=== PATIENT | male | born 1940 | race Caucasian/White ===

== ENCOUNTER 2017-11-21 21:53 | Inpatient (IN) | payer MEDICARE, MEDICAID ==
[2017-11-21 22:41] LABS: % BASOPHILS 1.4 % (0.0-2.0); % EOSINOPHILS 5.1 % (0.0-5.0); % LYMPHOCYTES 20.8 % (20.0-50.0); % MONOCYTES 12.5 % (2.0-10.0); % NEUTROPHILS 60.2 % (40.0-80.0); BASOPHILE ABSOLUTE 0.1 Th/cumm (0-0.2); EOSINOPHILE ABSOLUTE 0.3 Th/cmm (0.1-0.4); HEMATOCRIT 40.7 % (41.0-60); HEMOGLOBIN 13.4 gm/dL (12-16); LYMPHOCYTE ABSOLUTE 1.1 Th/cmm (1.5-3.0); MEAN CELL VOLUME 92.2 fl (80-99); MEAN CORPUSCULAR HEMOGLOBIN 30.3 pg (27.0-31.0); MEAN CORPUSCULAR HGB CONC 32.9 pg (28.0-36.0); MEAN PLATELET VOLUME 8.1 fl; MONOCYTE ABSOLUTE 0.7 Th/cmm (0.3-1.0); NEUTROPHILE ABSOLUTE 3.3 Th/cmm (1.8-8.0); PLATELET COUNT 161 Th/cmm (150-400); RED BLOOD COUNT 4.41 Mil/cmm (3.80-5.80); RED CELL DISTRIBUTION WIDTH 15.7 % (11.5-20.0); WHITE BLOOD COUNT 5.5 Th/cmm (4.8-10.8)
[2017-11-21 23:03] LABS: ALB/GLOB RATIO 0.6 (1.0-1.8); ALBUMIN 2.8 gm/dL (4.2-5.5); ALKALINE PHOSPHATASE 120 U/L (34-104); ANION GAP 14.4 (7.0-16.0); BILIRUBIN,TOTAL 0.5 mg/dL (0.3-1.0); BUN - UREA NITROGEN 32 mg/dL (7-25); CALCIUM SERUM 8.4 mg/dL (8.6-10.3); CARBON DIOXIDE 27.2 mEq/L (21.0-31.0); CHLORIDE 97 mEq/L (98-107); CREATININE KINASE 33 U/L (30-223); GLUCOSE 157 mg/dL (70-105); POTASSIUM SERUM 3.6 mEq/L (3.5-5.1); SGOT 28 U/L (13-39); SGPT/ALT 15 U/L (7-52); SODIUM SERUM 135 mEq/L (136-145); TOTAL PROTEIN,SERUM 7.3 gm/dL (6.0-8.3)
[2017-11-21 23:05] LABS: TROP I 0.04 ng/mL (0.01-0.05)
[2017-11-21] MEDS ORDERED: Sodium Chloride 0.45% 1,000 ML IV SCH (23:30)
[2017-11-22 00:46] VITALS: BP 175/71
[2017-11-22 02:49] LABS: INR 1.06 (0.5-1.4)
[2017-11-22] MEDS: INSULIN ASPART SLIDING SCALE 100 UNITS/ML UNIT SUBQ SCH ×4 (06:32→21:26)
[2017-11-22 06:34] LABS: % BASOPHILS 0.8 % (0.0-2.0); % EOSINOPHILS 4.9 % (0.0-5.0); % LYMPHOCYTES 29.3 % (20.0-50.0); % MONOCYTES 13.7 % (2.0-10.0); % NEUTROPHILS 51.3 % (40.0-80.0); EOSINOPHILE ABSOLUTE 0.3 Th/cmm (0.1-0.4); HEMATOCRIT 36.8 % (41.0-60); HEMOGLOBIN 12.2 gm/dL (12-16); LYMPHOCYTE ABSOLUTE 1.6 Th/cmm (1.5-3.0); MEAN CELL VOLUME 92.2 fl (80-99); MEAN CORPUSCULAR HEMOGLOBIN 30.6 pg (27.0-31.0); MEAN CORPUSCULAR HGB CONC 33.2 pg (28.0-36.0); MEAN PLATELET VOLUME 8.3 fl; MONOCYTE ABSOLUTE 0.7 Th/cmm (0.3-1.0); NEUTROPHILE ABSOLUTE 2.8 Th/cmm (1.8-8.0); PLATELET COUNT 157 Th/cmm (150-400); RED BLOOD COUNT 3.99 Mil/cmm (3.80-5.80); RED CELL DISTRIBUTION WIDTH 15.6 % (11.5-20.0); WHITE BLOOD COUNT 5.4 Th/cmm (4.8-10.8)
[2017-11-22 06:35] LABS: BUN - UREA NITROGEN 37 mg/dL (7-25); CALCIUM SERUM 8.1 mg/dL (8.6-10.3); CARBON DIOXIDE 28.8 mEq/L (21.0-31.0); CHLORIDE 99 mEq/L (98-107); CREATININE - SERUM 3.6 mg/dL (0.7-1.3); GLUCOSE 118 mg/dL (70-105); POTASSIUM SERUM 3.8 mEq/L (3.5-5.1); SODIUM SERUM 137 mEq/L (136-145)
--- NOTE | 2017-11-22 08:44 | ED Physician Chart ---
ED Chief Complaint/HPI - Patient Information Date Seen:: 11/21/17 Time Seen:: 21:55 Chief Complaint:: Weakness History of Present Illness:: onset x one day of weakness and dizziness; no report of trauma, H/As, S/T, neck pain, C/P, SOB, Abd. Pain, A/N/V/D/C, fever, chills, or urinary s/s Allergies:: Allergies Allergy/AdvReac Type Severity Reaction Status Date / Time No Known Allergies Allergy Verified 11/21/17 22:01 Historian:: Patient, EMS Review:: Nurse's Note Reviewed, Old Chart Reviewed, EMS run form Reviewed ED Review of Systems - Review of Systems General/Constitutional: No fever, No chills, No weight loss, Weakness, No diaphoresis, No edema, No loss of appetite Skin: No skin lesions, No rash, No bruising Head: No headache, No light-headedness Eyes: No loss of vision, No pain, No diplopia ENT: No earache, No nasal drainage, No sore throat, No tinnitus Neck: No neck pain, No swelling, No thyromegaly, No stiffness, No mass noted Cardio Vascular: No chest pain, No palpitations, No PND, No orthopnea, No edema Pulmonary: No SOB, No cough, No sputum, No wheezing GI: No nausea, No vomiting, No diarrhea, No pain, No melena, No hematochezia, No constipation, No hematemesis G/U: No dysuria, No frequency, No hematuria Musculoskeletal: No bone or joint pain, No back pain, No muscle pain Endocrine: No polyuria, No polydipsia Psychiatric: No prior psych history, No depression, No anxiety, No suicidal ideation, No homicidal ideation, No auditory hallucination, No visual hallucination Hematopoietic: No bruising, No lymphadenopathy Allergic/Immuno: No urticaria, No angioedema Neurological: No syncope, No focal symptoms, Weakness, No paresthesia, No headache, No seizure, No dizziness, No confusion, Vertigo ED Past Medical History - Past Medical History Obtainable: Yes Past Medical History: HTN, Dyslipidemia, ESRD Family History: Diabetes Melitus, HTN Social History: Non Smoker, No Alcohol, No Drug Use, Single, Care Facility Surgical History: None Psychiatricy History: None Medication: Reviewed Family Medical History - Family Member Mother History Unknown: Yes ED Physical Exam - Physical Examination General/Constitutional: Awake, Well-developed, well-nourished, Alert, No distress, GCS 15, Non-toxic appearing, Ambulatory Head: Atraumatic Eyes: Lids, conjuctiva normal, PERRL, EOMI Skin: Nl inspection, No rash, No skin lesions, No ecchymosis, No lymphadenopathy Other Skin comments:: Poor turgor with dry MM ENMT: External ears, nose nl, TM canals nl, Nasal exam nl, Lips, teeth, gums nl , Oropharynx nl, Tonsils nl Neck: Nontender, Full ROM w/o pain, No JVD, No nuchal rigidity, No bruit, No mass, No stridor Respiratory: Nl effort/Exclusion, Clear to Auscultation, No Wheeze/Rhonchi/Rales Cardio Vascular: RRR, No murmur, gallop, rubs, NL S1 S2, Carotid/Femoral/Distal pulses equal bilaterally GI: No tenderness/rebounding/guarding, No organomegaly, No hernia, Normal BS's, Nondistended, No mass/bruits, No McBurney tenderness Other GI comments:: no pulsatile masses : No CVA tenderness Extremities: No tenderness or effusion, Full ROM, normal strength in all extremities, No edema, Normal digits & nails Neuro/Psych: Alert/oriented, DTR's symmetric, Normal sensory exam, Normal motor strength, Judgement/insight normal, Mood normal, Normal gait, No focal deficits Misc: Normal back, No paraspinal tenderness ED Labs/Radiology/EKG Results - Lab Results Results: Laboratory Tests 11/21/17 11/21/17 11/21/17 22:10 22:10 22:10 WBC 5.5 RBC 4.41 Hgb 13.4 Hct 40.7 L MCV 92.2 MCH 30.3 MCHC Differential 32.9 RDW 15.7 Plt Count 161 MPV 8.1 Neutrophils % 60.2 Lymphocytes % 20.8 Monocytes % 12.5 H Eosinophils % 5.1 H Basophils % 1.4 PT 11.0 INR 1.06 PTT (Actin FS) 31.0 Sodium 135 L Potassium 3.6 Chloride 97 L Carbon Dioxide 27.2 Anion Gap 14.4 BUN 32 H Creatinine 3.0 H Est GFR ( Amer) TNP Est GFR (Non-Af Amer) TNP BUN/Creatinine Ratio 10.7 Glucose 157 H Whole Bld Lactic Acid Calcium 8.4 L Total Bilirubin 0.5 AST 28 ALT 15 Alkaline Phosphatase 120 H Creatine Kinase 33 Troponin I Total Protein 7.3 Albumin 2.8 L Globulin 4.5 Albumin/Globulin Ratio 0.6 L 11/21/17 22:10 WBC RBC Hgb Hct MCV MCH MCHC Differential RDW Plt Count MPV Neutrophils % Lymphocytes % Monocytes % Eosinophils % Basophils % PT INR PTT (Actin FS) Sodium Potassium Chloride Carbon Dioxide Anion Gap BUN Creatinine Est GFR ( Amer) Est GFR (Non-Af Amer) BUN/Creatinine Ratio Glucose Whole Bld Lactic Acid 1.34 Calcium Total Bilirubin AST ALT Alkaline Phosphatase Creatine Kinase Troponin I 0.04 Total Protein Albumin Globulin Albumin/Globulin Ratio Comments:: Reviewed - Radiology Results Comments:: NAD - EKG Interpretations EKG Time:: 22:20 Rate & Rhythm: 60; NSR Comments:: non-specific st-t changes ED Septic Shock - . Is Septic Shock (SBP<90, OR Lactate>4 mmol\L) present?: No ED Reassessment (Disposition) - Reassessment Reassessment Condition:: Improved - Diagnosis Diagnosis:: Weakness; Vertigo; Dizziness; TIA; cardiac Arrythmias; Renal Failure; Hypionatremia; Dehydration - Aftercare/Follow up Instructions Aftercare/Follow-Up Instructions:: Counseled pt regarding lab results/diagnosis & need follow up, Counseled pt & family regarding lab results/diagnosis & need follow up - Patient Disposition Discharge/Transfer:: Acute Care w/in this hosp Accepting Physician:: Dr. Dupont Time Called:: [id number] Time Responded:: 23:15 Admitted to:: Telemetry Spoke to:: Dr. Dupont Admitting Medical Physician:: Dr. Dupont Condition at Disposition:: Stable, Improved ED Discharge Plan - Patient Disposition Admit/Discharge/Transfer: Acute Care w/in this hosp
--- NOTE | 2017-11-22 08:48 | Diagnostic Imaging Report ---
Portable chest x-ray HISTORY: Pain The heart is enlarged. Cardiac pacemaker lead wires project over the right atrium and right ventricle. No focal pulmonary processes. Right-sided vascular catheter tip is seen in the upper region of the right atrium near the junction with the superior vena cava. IMPRESSION: 1. Cardiomegaly with pacemaker placement 2. No focal pulmonary processes
[2017-11-22] MEDS ORDERED: Acetaminophen 500 MG TAB PO PRN (13:27)
[2017-11-22] MEDS ORDERED: Hydrocodone/APAP 10 mg/325 mg Tab PO PRN (13:27)
[2017-11-22] MEDS ORDERED: Fleet Enema 135 mL RC PRN (13:27)
[2017-11-22] MEDS ORDERED: Non-Formulary Item 1 EA (Epoetin Alfa [Procrit] 10,000 UNIT) SUBQ SCH (13:30)
[2017-11-22] MEDS ORDERED: Non-Formulary Item 1 EA (Isosorbide Dinitrate [Isosorbide Dinitrate] 30 MG) PO SCH (14:00)
[2017-11-22] MEDS ORDERED: Epoetin Alfa 20000 Units/mL Vial SUBQ SCH (14:30)
[2017-11-22] MEDS ORDERED: Non-Formulary Item 1 EA (Insulin Lispro [Humalog] 1 UNIT) SQ SCH (16:30)
[2017-11-22] MEDS ORDERED: MEGESTROL ACETATE PO SCH (16:30)
[2017-11-22] MEDS: Albuterol Nebulizer 2.5mg/3mL HHN SCH (18:48)
--- NOTE | 2017-11-22 20:28 | History & Physical ---
ADMIT DATE: 11/22/2017 HISTORY OF PRESENT ILLNESS: The patient has been having problems for the last several days, has been complaining of weakness, was complaining of dizziness and is complaining of no trauma, no neck pain, no abdominal pain, no fever, no chills. Came to the Emergency Room in [facility]. The patient is known to have a history of hypertension, hyperlipidemia, and ESRD. The patient had a workup done and the patient found to have increasing weakness, vertigo, dizziness, possible TIA, cardiac arrhythmia, increasing renal failure, hyponatremia, was admitted, and a Nephrology consult was sought. REVIEW OF SYSTEMS: Difficult to obtain. PAST MEDICAL HISTORY: Hypertension, hyperlipidemia, and ESRD. PHYSICAL EXAMINATION: GENERAL: Awake, alert, not in acute distress. VITAL SIGNS: Stable. SKIN: Turgor was decreased. The patient had dehydration. HEAD: Normal. ENT: Normal. NECK: Supple, nontender. LUNGS: Clear. CARDIOVASCULAR SYSTEM: S1, S2 heard. ABDOMEN: Soft. LABORATORY DATA: Hemoglobin was 13.4, hematocrit was 40, and white count was 5.5. His BUN and creatinine was high. EKG showed normal sinus rhythm. DIAGNOSES: Weakness, vertigo, dizziness, possible TIA, cardiac arrhythmia, end-stage renal disease, hyponatremia, dehydration. The patient has been admitted and I will call Dr. Becker for consult and I will follow the patient. JOB# [id number]
[2017-11-22] MEDS ORDERED: Non-Formulary Item 1 EA (Atorvastatin Calcium [Lipitor] 20 MG) PO SCH (21:00)
[2017-11-22] MEDS: Atorvastatin Calcium 10 MG TAB PO SCH (21:17)
--- NOTE | 2017-11-22 23:55 | Consultation ---
DATE OF CONSULTATION: 11/22/2017 PATIENT OF: Dr. Dupont. Thank you very much Dr. Dupont for this consultation. HISTORY OF PRESENT ILLNESS: This is a 77-year-old male with history of end-stage renal disease, on dialysis, who was brought in here for severe weakness and dizziness. The patient was admitted for further treatment and management. According to nursing staff, the patient was complaining of shortness of breath earlier. Saturations are still 99% on room air. The patient wakes up, is not complaining of shortness of breath now, appears to be resting comfortably, and not able to give any further history. SOCIAL HISTORY: Not available. REVIEW OF SYSTEMS: Unable to obtain because of the patient's condition. PHYSICAL EXAMINATION: GENERAL: The patient is arousable, not much talkative. VITAL SIGNS: Temperature 97.7, pulse 60, respirations 18, blood pressure ____, and saturation is 100%. HEENT: Atraumatic and normocephalic. Pupils are equal and reactive to light and accommodation. Ears, nose, and throat normal. NECK: Supple. No JVD. CHEST: There is fair entry bilaterally. No wheezing, rhonchi, or crackles. HEART: Regular rhythm. ABDOMEN: Soft and nontender. EXTREMITIES: No edema. LABORATORY DATA AND DIAGNOSTIC STUDIES: WBC 5.7, hemoglobin 12.2, hematocrit 36.8, and platelets 157. Sodium 137, potassium 3.8, BUN 37, and creatinine 3.6. Lactic acid is 1.34. Chest x-ray: No acute infiltrate. Pacemaker in place. IMPRESSION: 1. This is a 77-year-old male with shortness of breath. It appears to have resolved. The patient's saturations are adequate, rule out pulmonary embolism less likely. 2. Possible underlying airway disease. PLAN: 1. Add nebulizer. 2. V/Q scan. We will follow the patient with you. JOB# [id number]
[2017-11-23] MEDS ORDERED: Heparin Sod 1,000 Units/mL 10ml HD SCH
[2017-11-23] MEDS ORDERED: Albumin 25% 25gm/100mL 25 GM/100 ML BTL IV PRN
[2017-11-23] MEDS: Albuterol Nebulizer 2.5mg/3mL HHN SCH ×4 (00:41→19:32)
[2017-11-23 06:01] LABS: ANION GAP 13.2 (7.0-16.0); BUN - UREA NITROGEN 52 mg/dL (7-25); CALCIUM SERUM 8.5 mg/dL (8.6-10.3); CARBON DIOXIDE 25.8 mEq/L (21.0-31.0); CHLORIDE 99 mEq/L (98-107); GLUCOSE 98 mg/dL (70-105); SODIUM SERUM 134 mEq/L (136-145)
[2017-11-23 06:09] LABS: CREATININE - SERUM 4.6 mg/dL (0.7-1.3)
[2017-11-23 06:16] LABS: % BASOPHILS 0.8 % (0.0-2.0); % EOSINOPHILS 4.3 % (0.0-5.0); % LYMPHOCYTES 32.7 % (20.0-50.0); % MONOCYTES 10.6 % (2.0-10.0); % NEUTROPHILS 51.6 % (40.0-80.0); EOSINOPHILE ABSOLUTE 0.2 Th/cmm (0.1-0.4); HEMATOCRIT 37.4 % (41.0-60); HEMOGLOBIN 12.5 gm/dL (12-16); LYMPHOCYTE ABSOLUTE 1.6 Th/cmm (1.5-3.0); MEAN CELL VOLUME 91.9 fl (80-99); MEAN CORPUSCULAR HEMOGLOBIN 30.8 pg (27.0-31.0); MEAN CORPUSCULAR HGB CONC 33.6 pg (28.0-36.0); MEAN PLATELET VOLUME 8.3 fl; MONOCYTE ABSOLUTE 0.5 Th/cmm (0.3-1.0); NEUTROPHILE ABSOLUTE 2.5 Th/cmm (1.8-8.0); PLATELET COUNT 146 Th/cmm (150-400); RED BLOOD COUNT 4.07 Mil/cmm (3.80-5.80); RED CELL DISTRIBUTION WIDTH 15.9 % (11.5-20.0); WHITE BLOOD COUNT 4.8 Th/cmm (4.8-10.8)
[2017-11-23] MEDS: INSULIN ASPART SLIDING SCALE 100 UNITS/ML UNIT SUBQ SCH ×4 (06:33→21:12)
[2017-11-23] MEDS: Calcium Carb/Vit D 500 mg/200 U Tab PO SCH (08:20)
[2017-11-23] MEDS: Ferrous Sulfate 325 MG TAB PO SCH (08:20)
[2017-11-23] MEDS: Aspirin 81mg Chewable Tab PO SCH (08:20)
[2017-11-23] MEDS: Pantoprazole 40 mg EC Tab PO SCH (08:21)
[2017-11-23] MEDS ORDERED: Non-Formulary Item 1 EA (Amino Acids/Protein Hydrolys [Pro-Stat Sugar Free Liquid] 30 ML) PO SCH (09:00)
[2017-11-23] MEDS ORDERED: ISOSORBIDE DINITRATE 60 MG PO SCH (09:00)
--- NOTE | 2017-11-23 09:10 | Diagnostic Imaging Report ---
Radionuclide perfusion/ventilation lung scan HISTORY: Shortness of breath 5.0 mCi technetium macroaggregated albumin was used for the perfusion portion of the study. 42.9 mCi technetium DTPA aerosol used for the ventilation portion of the exam. Examination is limited due to difficulty in patient positioning. Solitary ventilation image provided. Perfusion images are limited due to 3 projections. The provided images demonstrate uniform activity throughout both lungs. No focal abnormalities seen on perfusion or ventilation images. Specifically, no segmental defects. No perfusion/ventilation mismatches. IMPRESSION: 1. Limited exam. However, no definite evidence of pulmonary and wasn't.
--- NOTE | 2017-11-23 12:29 | Consultation ---
DATE OF CONSULTATION: 11/22/2017 ATTENDING PHYSICIAN: Anabell Dupont M.D. REASON FOR CONSULTATION: Electrolyte imbalance and fluid management. HISTORY OF PRESENT ILLNESS: This is a 77-year-old male with past medical history of end-stage renal disease, on hemodialysis, was brought in because of dizziness. A few hours prior to admission, the patient had his usual dialysis treatment. He suddenly felt weak, associated with dizziness. He was then brought to the Emergency Room. His blood pressure was 161/74 with a white count of 5.5 and blood sugar of 157. Chest x-ray revealed no acute disease. He had no nausea and vomiting, diarrhea, fever/chills, headaches, blurring of vision. PAST MEDICAL HISTORY: 1. End-stage renal disease, on hemodialysis. 2. Type 2 diabetes mellitus. 3. Essential hypertension. 4. Coronary artery disease. 5. Status post CVA with right hemiplegia. 6. Cardiac arrhythmia. 7. Anemia of chronic kidney disease. 8. BPH. 9. Dyslipidemia. 10. Peripheral arterial disease. PAST SURGICAL HISTORY: 1. Status post permanent pacemaker placement. 2. Status post left TMA. 3. Status post right first, second, and fourth digit amputation. MEDICATIONS: The patient is currently on acetaminophen, ascorbic acid, aspirin, atorvastatin, bisacodyl, calcium carbonate, docusate sodium, Epogen, ferrous sulfate, finasteride, folic acid, hydrocodone/APAP, lispro, isosorbide dinitrate, megestrol acetate, metoprolol, ondansetron, pantoprazole, and temazepam. ALLERGIES: No known drug allergies. SOCIAL AND FAMILY HISTORY: I was not able to obtain directly from the patient because of periods of confusion and slow response. REVIEW OF SYSTEMS: Again, I was not able to decipher directly from the patient because of the same reasons. PHYSICAL EXAMINATION: GENERAL: The patient is awake, comfortable, but somewhat confused. VITAL SIGNS: His blood pressure is 159/80, pulse 61, and temperature 98.6 degrees. SKIN: Good turgor, warm. No rash, no jaundice but has multiple ecchymosis and hematomas especially in his upper extremities. HEENT: Head normocephalic, atraumatic. Eyes: Unable to assess, but extraocular muscles intact with pale conjunctivae. Nose, midline nasal septum. Mouth, moist mucosa with adequate dentition. NECK: Supple, no adenopathy, no thyromegaly, no bruits. Trachea palpated in the midline. CHEST AND CARDIOVASCULAR: S1, S2. No rub, murmur, nor gallop appreciated. Point of maximal impulse fifth intercostal space, left midclavicular line. No abdominal or femoral ____ appreciated. He has a right Perm-A-Cath. ABDOMEN: Flat and soft. Positive for bowel sounds. No bruits either diastolic or systolic. RECTAL: Lax sphincter tone. GENITOURINARY: Normal appearing male genitalia. MUSCULOSKELETAL: No effusions present in his joints, but unable to assess his range of motion. EXTREMITIES: No evidence of any edema, cyanosis, nor clubbing and as mentioned, he has a left TMA as well as a right TMA with a history of diabetes. LABORATORY DATA: White count is 5.4, hemoglobin 12.2, hematocrit 36.8, platelets 157, polys 51.3%. Sodium is 137, potassium 3.8, chloride 99, bicarbonate is 28, BUN is 37, creatinine 3.6, and albumin is 2.8. IMPRESSION: 1. End-stage renal disease, on hemodialysis. 2. Dizziness, could be secondary to hypotension after his dialysis treatment, consider also hypoglycemia as well as arrhythmia with history of pacemaker placement; possibility also of benign paroxysmal positional vertigo should also be entertained. 3. Type 2 diabetes mellitus with chronic kidney disease. 4. Essential hypertension with chronic kidney disease. 5. Coronary artery disease. 6. Status post cerebrovascular accident with left hemiplegia. 7. Cardiac arrhythmia, status post permanent pacemaker placement. 8. Anemia of chronic kidney disease. 9. Benign prostatic hypertrophy. 10. Dyslipidemia. 11. Peripheral arterial disease, status post left TMA, status post right first, third, fourth digits amputation. 12. Severe malnutrition. PLAN: 1. Hemodialysis as scheduled. 2. Monitor blood pressure and make sure it is under control. 3. Try Antivert as needed. 4. CT scan of the head if dizziness does not resolve. Thank you Dr. Dupont for this consult. I will follow the patient closely with you. JOB# [id number]
--- NOTE | 2017-11-23 13:39 | General Progress Note ---
Subjective - Review of Systems Service Date: 11/23/17 Subjective: alert, denied dizziness, sob, cough Objective - Results Result Diagrams: 11/23/17 05:10 11/23/17 05:10 Recent Labs: Laboratory Last Values WBC 4.8 Th/cmm (4.8-10.8) 11/23/17 05:10 RBC 4.07 Mil/cmm (3.80-5.80) 11/23/17 05:10 Hgb 12.5 gm/dL (12-16) 11/23/17 05:10 Hct 37.4 % (41.0-60) L 11/23/17 05:10 MCV 91.9 fl (80-99) 11/23/17 05:10 MCH 30.8 pg (27.0-31.0) 11/23/17 05:10 MCHC Differential 33.6 pg (28.0-36.0) 11/23/17 05:10 RDW 15.9 % (11.5-20.0) 11/23/17 05:10 Plt Count 146 Th/cmm (150-400) L 11/23/17 05:10 MPV 8.3 fl 11/23/17 05:10 Neutrophils % 51.6 % (40.0-80.0) 11/23/17 05:10 Lymphocytes % 32.7 % (20.0-50.0) 11/23/17 05:10 Monocytes % 10.6 % (2.0-10.0) H 11/23/17 05:10 Eosinophils % 4.3 % (0.0-5.0) 11/23/17 05:10 Basophils % 0.8 % (0.0-2.0) 11/23/17 05:10 PT 11.0 SECONDS (9.5-11.5) 11/21/17 22:10 INR 1.06 (0.5-1.4) 11/21/17 22:10 PTT (Actin FS) 31.0 SECONDS (26.0-38.0) 11/21/17 22:10 Sodium 134 mEq/L (136-145) L 11/23/17 05:10 Potassium 4.0 mEq/L (3.5-5.1) 11/23/17 05:10 Chloride 99 mEq/L (98-107) 11/23/17 05:10 Carbon Dioxide 25.8 mEq/L (21.0-31.0) 11/23/17 05:10 Anion Gap 13.2 (7.0-16.0) 11/23/17 05:10 BUN 52 mg/dL (7-25) H 11/23/17 05:10 Creatinine 4.6 mg/dL (0.7-1.3) H* 11/23/17 05:10 Est GFR ( Amer) TNP 11/23/17 05:10 Est GFR (Non-Af Amer) TNP 11/23/17 05:10 BUN/Creatinine Ratio 11.3 11/23/17 05:10 Glucose 98 mg/dL (70-105) 11/23/17 05:10 POC Glucose 113 MG/DL (70 - 105) H 11/23/17 11:24 Whole Bld Lactic Acid 1.34 mmol/L (0.60-1.99) 11/21/17 22:10 Calcium 8.5 mg/dL (8.6-10.3) L 11/23/17 05:10 Total Bilirubin 0.5 mg/dL (0.3-1.0) 11/21/17 22:10 AST 28 U/L (13-39) 11/21/17 22:10 ALT 15 U/L (7-52) 11/21/17 22:10 Alkaline Phosphatase 120 U/L (34-104) H 11/21/17 22:10 Creatine Kinase 33 U/L (30-223) 11/21/17 22:10 Troponin I 0.04 ng/mL (0.01-0.05) 11/21/17 22:10 Total Protein 7.3 gm/dL (6.0-8.3) 11/21/17 22:10 Albumin 2.8 gm/dL (4.2-5.5) L 11/21/17 22:10 Globulin 4.5 gm/dL 11/21/17 22:10 Albumin/Globulin Ratio 0.6 (1.0-1.8) L 11/21/17 22:10 - Physical Exam Vitals and I&O: Vital Signs Temp 97.0 F 11/23/17 11:29 Pulse 60 11/23/17 13:29 Resp 18 11/23/17 11:29 BP 118/62 11/23/17 13:29 Pulse Ox 100 11/23/17 11:29 Intake & Output 11/22/17 11/23/17 11/23/17 18:59 06:59 18:59 Intake Total 600 200 Balance 600 200 Weight (lbs) 82.554 kg 82.554 kg Intake: Oral 600 200 Other: # Voids 2 2 # Bowel Movements 0 0 Weight Source Bedscale Bedscale Active Medications: Current Medications Acetaminophen (Tylenol) 650 mg PO Q6HR PRN PRN Reason: Pain (Mild) Stop: 01/21/18 13:26 Last Admin: 11/22/17 16:15 Dose: 650 mg Acetaminophen (Tylenol Extra Strength) 1,000 mg PO Q6HR PRN PRN Reason: Pain (Moderate) Stop: 01/21/18 13:26 Acetaminophen/Hydrocodone Bitart ([place] 10 Mg/325 Mg) 1 tab PO Q4H PRN PRN Reason: Severe Pain Stop: 01/21/18 13:26 Albuterol Sulfate (Albuterol 2.5mg/3ml Neb Ud) 2.5 mg HHN Q6HRT [facility] Stop: 01/21/18 18:59 Last Admin: 11/23/17 07:14 Dose: 2.5 mg Ascorbic Acid (Vitamin C) 500 mg PO DAILY [facility] Stop: 01/22/18 08:59 Last Admin: 11/23/17 08:20 Dose: 500 mg Aspirin (Aspirin Chewable) 81 mg PO DAILY [facility] Stop: 01/22/18 08:59 Last Admin: 11/23/17 08:20 Dose: 81 mg Atorvastatin Calcium (Lipitor) 20 mg PO HS [facility] Stop: 01/21/18 20:59 Last Admin: 11/22/17 21:17 Dose: 20 mg Bisacodyl (Dulcolax 10 Mg Supp) 10 mg RC DAILY PRN PRN Reason: Constipation Stop: 01/21/18 13:26 Calcium/Vitamin D (Oscal W/Vitamin D) 1 tab PO DAILY [facility] Stop: 01/22/18 08:59 Last Admin: 11/23/17 08:20 Dose: 1 tab Docusate Sodium (Colace) 100 mg PO DAILY [facility] Stop: 01/22/18 08:59 Last Admin: 11/23/17 08:20 Dose: 100 mg Epoetin Tony (Epogen) 10,000 units SUBQ QTUE [facility] Stop: 01/21/18 14:29 Last Admin: 11/22/17 15:37 Dose: Not Given Ferrous Sulfate (Iron) 325 mg PO DAILY [facility] Stop: 01/22/18 08:59 Last Admin: 11/23/17 08:20 Dose: 325 mg Finasteride (Proscar) 5 mg PO HS [facility]; Protocol Stop: 01/21/18 20:59 Last Admin: 11/22/17 21:17 Dose: 5 mg Folic Acid (Folate) 1 mg PO DAILY [facility] Stop: 01/22/18 08:59 Last Admin: 11/23/17 08:20 Dose: 1 mg Heparin Sodium (Porcine) (Heparin Sodium) 0 units HD UD [facility] Stop: 11/24/17 00:00 Heparin Sodium (Porcine) (Heparin) 10,000 units HD UD [facility] Stop: 11/24/17 11:59 Hydralazine HCl (Apresoline) 25 mg PO TID [facility] Stop: 01/21/18 13:59 Last Admin: 11/23/17 13:29 Dose: 25 mg Albumin Human (Albuminar 25%) 25 gm in 100 mls @ 50 mls/hr IV DAILY PRN PRN Reason: BP Support During HD Stop: 01/22/18 00:00 Insulin Aspart (Novolog Insulin Sliding Scale) 0 units SUBQ ACHS [facility]; Protocol Stop: 01/21/18 07:29 Last Admin: 11/23/17 11:38 Dose: Not Given Isosorbide Dinitrate (Isordil) 60 mg PO DAILY [facility] Stop: 01/22/18 08:59 Last Admin: 11/23/17 08:21 Dose: 60 mg Meclizine HCl (Antivert) 12.5 mg PO Q8H PRN PRN Reason: Dizziness Stop: 01/21/18 13:53 Megestrol Acetate (Megace) 400 mg PO BID [facility] Stop: 01/21/18 16:59 Last Admin: 11/23/17 08:23 Dose: 400 mg Metoprolol Tartrate (Lopressor) 12.5 mg PO BID [facility] Stop: 01/21/18 16:59 Last Admin: 11/23/17 08:21 Dose: 12.5 mg Ondansetron HCl (Zofran) 4 mg IV Q6H PRN PRN Reason: Nausea / Vomiting Stop: 01/21/18 08:35 Pantoprazole Sodium (Protonix) 40 mg PO DAILY [facility] Stop: 01/22/18 08:59 Last Admin: 11/23/17 08:21 Dose: 40 mg Sodium Phosphate (Fleet Enema) 135 ml RC DAILY PRN PRN Reason: Constipation Stop: 01/21/18 13:26 Temazepam (Restoril) 15 mg PO HS PRN; Protocol PRN Reason: Insomnia Stop: 01/21/18 00:34 Last Admin: 11/22/17 00:53 Dose: 15 mg General: Alert, No acute distress HEENT: Atraumatic, PERRLA, EOMI, Mucous membr. moist/pink Neck: Supple, +2 carotid pulse wo bruit Cardiovascular: Regular rate, Normal S1, Normal S2 Lungs: Clear to auscultation Abdomen: Bowel sounds, Soft Extremities: no Edema Neurological: Sensation intact Skin: no Rash Psych/Mental Status: Mood NL Assessment/Plan - Assessment Assessment: ESRD on HD Dizziness resolved T2DM w/ CKD Ess Htn w/ CKD CAD S/P CVA Arrythmia S/P PPP Anemia of CD - Plan Plan: Lab - Result Diagrams 11/23/17 05:10 11/23/17 05:10 Current Medications Acetaminophen (Tylenol) 650 mg PO Q6HR PRN PRN Reason: Pain (Mild) Stop: 01/21/18 13:26 Last Admin: 11/22/17 16:15 Dose: 650 mg Acetaminophen (Tylenol Extra Strength) 1,000 mg PO Q6HR PRN PRN Reason: Pain (Moderate) Stop: 01/21/18 13:26 Acetaminophen/Hydrocodone Bitart ([place] 10 Mg/325 Mg) 1 tab PO Q4H PRN PRN Reason: Severe Pain Stop: 01/21/18 13:26 Albuterol Sulfate (Albuterol 2.5mg/3ml Neb Ud) 2.5 mg HHN Q6HRT [facility] Stop: 01/21/18 18:59 Last Admin: 11/23/17 07:14 Dose: 2.5 mg Ascorbic Acid (Vitamin C) 500 mg PO DAILY [facility] Stop: 01/22/18 08:59 Last Admin: 11/23/17 08:20 Dose: 500 mg Aspirin (Aspirin Chewable) 81 mg PO DAILY [facility] Stop: 01/22/18 08:59 Last Admin: 11/23/17 08:20 Dose: 81 mg Atorvastatin Calcium (Lipitor) 20 mg PO HS [facility] Stop: 01/21/18 20:59 Last Admin: 11/22/17 21:17 Dose: 20 mg Bisacodyl (Dulcolax 10 Mg Supp) 10 mg RC DAILY PRN PRN Reason: Constipation Stop: 01/21/18 13:26 Calcium/Vitamin D (Oscal W/Vitamin D) 1 tab PO DAILY [facility] Stop: 01/22/18 08:59 Last Admin: 11/23/17 08:20 Dose: 1 tab Docusate Sodium (Colace) 100 mg PO DAILY [facility] Stop: 01/22/18 08:59 Last Admin: 11/23/17 08:20 Dose: 100 mg Epoetin Tony (Epogen) 10,000 units SUBQ QTUE [facility] Stop: 01/21/18 14:29 Last Admin: 11/22/17 15:37 Dose: Not Given Ferrous Sulfate (Iron) 325 mg PO DAILY [facility] Stop: 01/22/18 08:59 Last Admin: 11/23/17 08:20 Dose: 325 mg Finasteride (Proscar) 5 mg PO HS [facility]; Protocol Stop: 01/21/18 20:59 Last Admin: 11/22/17 21:17 Dose: 5 mg Folic Acid (Folate) 1 mg PO DAILY [facility] Stop: 01/22/18 08:59 Last Admin: 11/23/17 08:20 Dose: 1 mg Heparin Sodium (Porcine) (Heparin Sodium) 0 units HD UD [facility] Stop: 11/24/17 00:00 Heparin Sodium (Porcine) (Heparin) 10,000 units HD UD [facility] Stop: 11/24/17 11:59 Hydralazine HCl (Apresoline) 25 mg PO TID [facility] Stop: 01/21/18 13:59 Last Admin: 11/23/17 13:29 Dose: 25 mg Albumin Human (Albuminar 25%) 25 gm in 100 mls @ 50 mls/hr IV DAILY PRN PRN Reason: BP Support During HD Stop: 01/22/18 00:00 Insulin Aspart (Novolog Insulin Sliding Scale) 0 units SUBQ ACHS [facility]; Protocol Stop: 01/21/18 07:29 Last Admin: 11/23/17 11:38 Dose: Not Given Isosorbide Dinitrate (Isordil) 60 mg PO DAILY [facility] Stop: 01/22/18 08:59 Last Admin: 11/23/17 08:21 Dose: 60 mg Meclizine HCl (Antivert) 12.5 mg PO Q8H PRN PRN Reason: Dizziness Stop: 01/21/18 13:53 Megestrol Acetate (Megace) 400 mg PO BID [facility] Stop: 01/21/18 16:59 Last Admin: 11/23/17 08:23 Dose: 400 mg Metoprolol Tartrate (Lopressor) 12.5 mg PO BID [facility] Stop: 01/21/18 16:59 Last Admin: 11/23/17 08:21 Dose: 12.5 mg Ondansetron HCl (Zofran) 4 mg IV Q6H PRN PRN Reason: Nausea / Vomiting Stop: 01/21/18 08:35 Pantoprazole Sodium (Protonix) 40 mg PO DAILY [facility] Stop: 01/22/18 08:59 Last Admin: 11/23/17 08:21 Dose: 40 mg Sodium Phosphate (Fleet Enema) 135 ml RC DAILY PRN PRN Reason: Constipation Stop: 01/21/18 13:26 Temazepam (Restoril) 15 mg PO HS PRN; Protocol PRN Reason: Insomnia Stop: 01/21/18 00:34 Last Admin: 11/22/17 00:53 Dose: 15 mg Lab - Result Diagrams 11/23/17 05:10 11/23/17 05:10 pt. just completed dialysis & denied any dizziness for CT Scan of head monitor closely Nutritional Asmnt/Malnutr-PDOC - Dietary Evaluation Malnutrition Findings (Please click <Entered> for more info): Nutritional Asmnt/Malnutrition Start: 11/22/17 17: 43 Text: Status: Complete Freq: Protocol: Document 11/22/17 17:55 LCHENG (Rec: 11/22/17 18:22 [email or web address] [email or web address]) Nutritional Asmnt/Malnutrition Patient General Information Nutritional Screening High Risk Diagnosis dehydration, generalized wheakness, renal failure KISHOR Pertinent Medical Hx/Surgical Hx HTN, hydlipidemia, ESRD, DM Subjective Information Pt seen lying in bed at time of visit. Explained renal diet for pt. Dialysis ordered noted per EMR. 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 Problem Problem altered nutrition related lab Etiology hx of ESRD Signs/Symptoms: BUN 27, Cr 3.6 Malnutrition Alert Is there a minimum of two criteria No selected? Query Text:Check all the applicable criteria. A minimum of two criteria are recommended for diagnosis of either severe or non-severe malnutrition. Malnutrition Related to Morbid Obesity Malnutrition related to morbid obesity No Intervention/Recommendation Comments 1. Continue with current diet as ordered. If PO intake <75%, consider adding Nepro to supplement nutrition intake 2. Monitor PO intake, wt, labs and skin integrity 3. F/U as moderate risk in 3-5 days, 11/25-11/27 Expected Outcomes/Goals Expected Outcomes/Goals 1. PO intake to meet at least 75% of nutritional needs. 2. Wt stability, skin to remain intact, labs to approach WNL.
[2017-11-23] MEDS: Atorvastatin Calcium 10 MG TAB PO SCH (21:10)
[2017-11-24] MEDS: Albuterol Nebulizer 2.5mg/3mL HHN SCH ×3 (00:26→13:53)
[2017-11-24] MEDS: INSULIN ASPART SLIDING SCALE 100 UNITS/ML UNIT SUBQ SCH ×3 (07:14→16:45)
[2017-11-24] MEDS: Aspirin 81mg Chewable Tab PO SCH (08:32)
[2017-11-24] MEDS: Ferrous Sulfate 325 MG TAB PO SCH (08:33)
[2017-11-24] MEDS: Pantoprazole 40 mg EC Tab PO SCH (08:33)
[2017-11-24] MEDS: Calcium Carb/Vit D 500 mg/200 U Tab PO SCH (08:34)
--- NOTE | 2017-11-24 09:35 | Diagnostic Imaging Report ---
Exam: Ultrasound examination of the extracranial carotid circulation HISTORY: TIA Findings: Real-time ultrasound examination of the extracranial carotid circulation was performed multiple planes utilizing color technique. The study demonstrates atherosclerotic plaque formation arising along the course of common carotid arteries bilaterally extending into the origin internal and external carotid arteries bilaterally. There is approximately 50% narrowing of the right internal carotid origin There is approximately 50% narrowing of the left internal carotid artery origin. The vertebral arteries demonstrate antegrade flow. There is evidence for some intimal plaque formation carotid bulbs bilaterally. The right internal carotid artery index is 0.9 The left internal carotid artery index 0.9 IMPRESSION mild to moderate plaque formation through the origin internal carotid arteries bilaterally with approximately 50% narrowing bilaterally. No evidence for significant stenosis or alteration of flow.
--- NOTE | 2017-11-24 09:37 | Diagnostic Imaging Report ---
CT scan of the brain without intravenous contrast HISTORY: PA Total DLP equals 801 CTDI equals 38.3 Axial sections were obtained from the base of the skull to the vertex. There is prominence/enlargement of the ventricular system size. Associated enlargement of cerebral sulci and subarachnoid cisterns. Findings are consistent with changes of generalized cerebral atrophy. No acute parenchymal abnormalities. There is evidence of bilateral lacunar infarcts. Vascular calcifications are noted. No acute cerebral hemorrhage. Hypodensity is seen within the supratentorial white matter regions without mass effect. The findings may be associated with chronic small vessel ischemic disease. No extra-axial masses or abnormal fluid collections. Mucosal thickening of the ethmoid air cells appreciated. IMPRESSION: 1. No acute abnormalities 2. Cerebral atrophy, bilateral lacunar infarcts noted 3. Supratentorial white matter changes that may reflect chronic small vessel ischemic disease
--- NOTE | 2017-11-24 11:15 | Progress Notes ---
DATE: 11/24/2017 SUBJECTIVE: The patient was seen in his room. The patient is asleep but easily arousable. Patient is a poor historian. Otherwise, the patient appears to be in no acute distress. OBJECTIVE: VITAL SIGNS: Temperature 98, heart rate of 60, blood pressure 188/79, respirations 18, 98% on room air. HEENT: Head is atraumatic and normocephalic. Eyes: Bilateral conjunctivae are clear. Bilateral pupils are equally round and reactive. NECK: Supple. No JVD. CARDIOVASCULAR: S1 and S2, without murmur. PULMONARY: Decreased breath sounds. GASTROINTESTINAL: Soft and nontender without guarding. Positive bowel sounds. MUSCULOSKELETAL: No clubbing. No cyanosis noted. ASSESSMENT: 1. End-stage renal disease, hemodialysis dependent. 2. Diabetes. 3. Hypertension. 4. Coronary artery disease. 5. Anemia. 6. Hyperlipidemia. 7. Peripheral arterial disease. 8. History of cerebrovascular accident. PLAN: We will keep the patient inpatient and will follow up with the hand tufter for dialysis schedule. Also going to continue to monitor electrolytes and measure intake and output. Treatment plans were discussed with the patient's nurse. Treatment plans were discussed with Dr. Dupont. JOB# [id number]
--- NOTE | 2017-11-24 13:46 | General Progress Note ---
Subjective - Review of Systems Service Date: 11/24/17 Subjective: alert, denied dizziness, sob, cough Objective - Results Result Diagrams: 11/23/17 05:10 11/23/17 05:10 Recent Labs: Laboratory Last Values WBC 4.8 Th/cmm (4.8-10.8) 11/23/17 05:10 RBC 4.07 Mil/cmm (3.80-5.80) 11/23/17 05:10 Hgb 12.5 gm/dL (12-16) 11/23/17 05:10 Hct 37.4 % (41.0-60) L 11/23/17 05:10 MCV 91.9 fl (80-99) 11/23/17 05:10 MCH 30.8 pg (27.0-31.0) 11/23/17 05:10 MCHC Differential 33.6 pg (28.0-36.0) 11/23/17 05:10 RDW 15.9 % (11.5-20.0) 11/23/17 05:10 Plt Count 146 Th/cmm (150-400) L 11/23/17 05:10 MPV 8.3 fl 11/23/17 05:10 Neutrophils % 51.6 % (40.0-80.0) 11/23/17 05:10 Lymphocytes % 32.7 % (20.0-50.0) 11/23/17 05:10 Monocytes % 10.6 % (2.0-10.0) H 11/23/17 05:10 Eosinophils % 4.3 % (0.0-5.0) 11/23/17 05:10 Basophils % 0.8 % (0.0-2.0) 11/23/17 05:10 PT 11.0 SECONDS (9.5-11.5) 11/21/17 22:10 INR 1.06 (0.5-1.4) 11/21/17 22:10 PTT (Actin FS) 31.0 SECONDS (26.0-38.0) 11/21/17 22:10 Sodium 134 mEq/L (136-145) L 11/23/17 05:10 Potassium 4.0 mEq/L (3.5-5.1) 11/23/17 05:10 Chloride 99 mEq/L (98-107) 11/23/17 05:10 Carbon Dioxide 25.8 mEq/L (21.0-31.0) 11/23/17 05:10 Anion Gap 13.2 (7.0-16.0) 11/23/17 05:10 BUN 52 mg/dL (7-25) H 11/23/17 05:10 Creatinine 4.6 mg/dL (0.7-1.3) H* 11/23/17 05:10 Est GFR ( Amer) TNP 11/23/17 05:10 Est GFR (Non-Af Amer) TNP 11/23/17 05:10 BUN/Creatinine Ratio 11.3 11/23/17 05:10 Glucose 98 mg/dL (70-105) 11/23/17 05:10 POC Glucose 96 MG/DL (70 - 105) 11/24/17 12:22 Whole Bld Lactic Acid 1.34 mmol/L (0.60-1.99) 11/21/17 22:10 Calcium 8.5 mg/dL (8.6-10.3) L 11/23/17 05:10 Total Bilirubin 0.5 mg/dL (0.3-1.0) 11/21/17 22:10 AST 28 U/L (13-39) 11/21/17 22:10 ALT 15 U/L (7-52) 11/21/17 22:10 Alkaline Phosphatase 120 U/L (34-104) H 11/21/17 22:10 Creatine Kinase 33 U/L (30-223) 11/21/17 22:10 Troponin I 0.04 ng/mL (0.01-0.05) 11/21/17 22:10 Total Protein 7.3 gm/dL (6.0-8.3) 11/21/17 22:10 Albumin 2.8 gm/dL (4.2-5.5) L 11/21/17 22:10 Globulin 4.5 gm/dL 11/21/17 22:10 Albumin/Globulin Ratio 0.6 (1.0-1.8) L 11/21/17 22:10 - Physical Exam Vitals and I&O: Vital Signs Temp 98.1 F 11/24/17 11:40 Pulse 68 11/24/17 13:01 Resp 18 11/24/17 11:40 BP 159/74 07/21/18 13:01 Pulse Ox 99 11/24/17 11:40 Intake & Output 11/23/17 11/24/17 11/24/17 18:59 06:59 18:59 Intake Total 850 Output Total 1500 2 Balance -650 -2 Weight (lbs) 81.647 kg 88.451 kg Intake: Oral 850 Output: Urine 2 Hemodialysis 1500 Other: # Voids 3 # Bowel Movements 1 1 Stool Characteristics Soft Weight Source Bedscale Bedscale Active Medications: Current Medications Acetaminophen (Tylenol) 650 mg PO Q6HR PRN PRN Reason: Pain (Mild) Stop: 01/21/18 13:26 Last Admin: 11/22/17 16:15 Dose: 650 mg Acetaminophen (Tylenol Extra Strength) 1,000 mg PO Q6HR PRN PRN Reason: Pain (Moderate) Stop: 01/21/18 13:26 Last Admin: 11/24/17 00:29 Dose: 1,000 mg Acetaminophen/Hydrocodone Bitart ([place] 10 Mg/325 Mg) 1 tab PO Q4H PRN PRN Reason: Severe Pain Stop: 01/21/18 13:26 Albuterol Sulfate (Albuterol 2.5mg/3ml Neb Ud) 2.5 mg HHN Q6HRT [place] Stop: 01/21/18 18:59 Last Admin: 11/24/17 07:03 Dose: 2.5 mg Ascorbic Acid (Vitamin C) 500 mg PO DAILY [place] Stop: 01/22/18 08:59 Last Admin: 11/24/17 08:34 Dose: 500 mg Aspirin (Aspirin Chewable) 81 mg PO DAILY [place] Stop: 01/22/18 08:59 Last Admin: 11/24/17 08:32 Dose: 81 mg Atorvastatin Calcium (Lipitor) 20 mg PO HS [place] Stop: 01/21/18 20:59 Last Admin: 11/23/17 21:10 Dose: 20 mg Bisacodyl (Dulcolax 10 Mg Supp) 10 mg RC DAILY PRN PRN Reason: Constipation Stop: 01/21/18 13:26 Calcium/Vitamin D (Oscal W/Vitamin D) 1 tab PO DAILY [place] Stop: 01/22/18 08:59 Last Admin: 11/24/17 08:34 Dose: 1 tab Docusate Sodium (Colace) 100 mg PO DAILY [place] Stop: 01/22/18 08:59 Last Admin: 11/24/17 08:34 Dose: 100 mg Epoetin Tony (Epogen) 10,000 units SUBQ QTUE [facility] Stop: 01/21/18 14:29 Last Admin: 11/22/17 15:37 Dose: Not Given Ferrous Sulfate (Iron) 325 mg PO DAILY [facility] Stop: 01/22/18 08:59 Last Admin: 11/24/17 08:33 Dose: 325 mg Finasteride (Proscar) 5 mg PO HS [facility]; Protocol Stop: 01/21/18 20:59 Last Admin: 11/23/17 21:11 Dose: 5 mg Folic Acid (Folate) 1 mg PO DAILY [facility] Stop: 01/22/18 08:59 Last Admin: 11/24/17 08:33 Dose: 1 mg Hydralazine HCl (Apresoline) 25 mg PO TID [facility] Stop: 01/21/18 13:59 Last Admin: 11/24/17 13:01 Dose: 25 mg Albumin Human (Albuminar 25%) 25 gm in 100 mls @ 50 mls/hr IV DAILY PRN PRN Reason: BP Support During HD Stop: 01/22/18 00:00 Insulin Aspart (Novolog Insulin Sliding Scale) 0 units SUBQ ACHS [facility]; Protocol Stop: 01/21/18 07:29 Last Admin: 11/24/17 12:43 Dose: Not Given Isosorbide Dinitrate (Isordil) 60 mg PO DAILY [facility] Stop: 01/22/18 08:59 Last Admin: 11/24/17 08:32 Dose: 60 mg Meclizine HCl (Antivert) 12.5 mg PO Q8H PRN PRN Reason: Dizziness Stop: 01/21/18 13:53 Megestrol Acetate (Megace) 400 mg PO BID [facility] Stop: 01/21/18 16:59 Last Admin: 11/24/17 08:32 Dose: 400 mg Metoprolol Tartrate (Lopressor) 12.5 mg PO BID [facility] Stop: 01/21/18 16:59 Last Admin: 11/24/17 08:32 Dose: 12.5 mg Mupirocin (Bactroban Oint) 1 appl NS BID [facility] Stop: 11/28/17 09:01 Last Admin: 11/24/17 08:34 Dose: 1 appl Ondansetron HCl (Zofran) 4 mg IV Q6H PRN PRN Reason: Nausea / Vomiting Stop: 01/21/18 08:35 Pantoprazole Sodium (Protonix) 40 mg PO DAILY [place] Stop: 01/22/18 08:59 Last Admin: 11/24/17 08:33 Dose: 40 mg Sodium Phosphate (Fleet Enema) 135 ml RC DAILY PRN PRN Reason: Constipation Stop: 01/21/18 13:26 Temazepam (Restoril) 15 mg PO HS PRN; Protocol PRN Reason: Insomnia Stop: 01/21/18 00:34 Last Admin: 11/22/17 00:53 Dose: 15 mg General: Alert, No acute distress HEENT: Atraumatic, PERRLA, EOMI, Mucous membr. moist/pink Neck: Supple, +2 carotid pulse wo bruit Cardiovascular: Regular rate, Normal S1, Normal S2 Lungs: Clear to auscultation Abdomen: Bowel sounds, Soft Extremities: no Edema Neurological: Sensation intact Skin: no Rash Psych/Mental Status: Mood NL Assessment/Plan - Assessment Assessment: ESRD on HD Dizziness resolved T2DM w/ CKD Ess Htn w/ CKD CAD S/P CVA Arrythmia S/P PPP Anemia of CD - Plan Plan: Lab - Result Diagrams 11/23/17 05:10 11/23/17 05:10 Current Medications Acetaminophen (Tylenol) 650 mg PO Q6HR PRN PRN Reason: Pain (Mild) Stop: 01/21/18 13:26 Last Admin: 11/22/17 16:15 Dose: 650 mg Acetaminophen (Tylenol Extra Strength) 1,000 mg PO Q6HR PRN PRN Reason: Pain (Moderate) Stop: 01/21/18 13:26 Acetaminophen/Hydrocodone Bitart ([place] 10 Mg/325 Mg) 1 tab PO Q4H PRN PRN Reason: Severe Pain Stop: 01/21/18 13:26 Albuterol Sulfate (Albuterol 2.5mg/3ml Neb Ud) 2.5 mg HHN Q6HRT [place] Stop: 01/21/18 18:59 Last Admin: 11/23/17 07:14 Dose: 2.5 mg Ascorbic Acid (Vitamin C) 500 mg PO DAILY [place] Stop: 01/22/18 08:59 Last Admin: 11/23/17 08:20 Dose: 500 mg Aspirin (Aspirin Chewable) 81 mg PO DAILY [facility] Stop: 01/22/18 08:59 Last Admin: 11/23/17 08:20 Dose: 81 mg Atorvastatin Calcium (Lipitor) 20 mg PO HS [place] Stop: 01/21/18 20:59 Last Admin: 11/22/17 21:17 Dose: 20 mg Bisacodyl (Dulcolax 10 Mg Supp) 10 mg RC DAILY PRN PRN Reason: Constipation Stop: 01/21/18 13:26 Calcium/Vitamin D (Oscal W/Vitamin D) 1 tab PO DAILY [place] Stop: 01/22/18 08:59 Last Admin: 11/23/17 08:20 Dose: 1 tab Docusate Sodium (Colace) 100 mg PO DAILY [facility] Stop: 01/22/18 08:59 Last Admin: 11/23/17 08:20 Dose: 100 mg Epoetin Tony (Epogen) 10,000 units SUBQ QTUE [facility] Stop: 01/21/18 14:29 Last Admin: 11/22/17 15:37 Dose: Not Given Ferrous Sulfate (Iron) 325 mg PO DAILY [facility] Stop: 01/22/18 08:59 Last Admin: 11/23/17 08:20 Dose: 325 mg Finasteride (Proscar) 5 mg PO HS [facility]; Protocol Stop: 01/21/18 20:59 Last Admin: 11/22/17 21:17 Dose: 5 mg Folic Acid (Folate) 1 mg PO DAILY [facility] Stop: 01/22/18 08:59 Last Admin: 11/23/17 08:20 Dose: 1 mg Heparin Sodium (Porcine) (Heparin Sodium) 0 units HD UD [facility] Stop: 11/24/17 00:00 Heparin Sodium (Porcine) (Heparin) 10,000 units HD UD [facility] Stop: 11/24/17 11:59 Hydralazine HCl (Apresoline) 25 mg PO TID [facility] Stop: 01/21/18 13:59 Last Admin: 11/23/17 13:29 Dose: 25 mg Albumin Human (Albuminar 25%) 25 gm in 100 mls @ 50 mls/hr IV DAILY PRN PRN Reason: BP Support During HD Stop: 01/22/18 00:00 Insulin Aspart (Novolog Insulin Sliding Scale) 0 units SUBQ [facility]; Protocol Stop: 01/21/18 07:29 Last Admin: 11/23/17 11:38 Dose: Not Given Isosorbide Dinitrate (Isordil) 60 mg PO DAILY [facility] Stop: 01/22/18 08:59 Last Admin: 11/23/17 08:21 Dose: 60 mg Meclizine HCl (Antivert) 12.5 mg PO Q8H PRN PRN Reason: Dizziness Stop: 01/21/18 13:53 Megestrol Acetate (Megace) 400 mg PO BID [facility] Stop: 01/21/18 16:59 Last Admin: 11/23/17 08:23 Dose: 400 mg Metoprolol Tartrate (Lopressor) 12.5 mg PO BID [facility] Stop: 01/21/18 16:59 Last Admin: 11/23/17 08:21 Dose: 12.5 mg Ondansetron HCl (Zofran) 4 mg IV Q6H PRN PRN Reason: Nausea / Vomiting Stop: 01/21/18 08:35 Pantoprazole Sodium (Protonix) 40 mg PO DAILY [facility] Stop: 01/22/18 08:59 Last Admin: 11/23/17 08:21 Dose: 40 mg Sodium Phosphate (Fleet Enema) 135 ml RC DAILY PRN PRN Reason: Constipation Stop: 01/21/18 13:26 Temazepam (Restoril) 15 mg PO HS PRN; Protocol PRN Reason: Insomnia Stop: 01/21/18 00:34 Last Admin: 11/22/17 00:53 Dose: 15 mg Lab - Result Diagrams 11/23/17 05:10 11/23/17 05:[address] Scan head cerebral atrophy & old lacunar infarcts monitor closely Nutritional Asmnt/Malnutr-PDOC - Dietary Evaluation Malnutrition Findings (Please click <Entered> for more info): Nutritional Asmnt/Malnutrition Start: 11/22/17 17: 43 Text: Status: Complete Freq: Protocol: Document 11/22/17 17:55 LCHENG (Rec: 11/22/17 18:22 [id number]) Nutritional Asmnt/Malnutrition Patient General Information Nutritional Screening High Risk Diagnosis dehydration, generalized wheakness, renal failure KISHOR Pertinent Medical Hx/Surgical Hx HTN, hydlipidemia, ESRD, DM Subjective Information Pt seen lying in bed at time of visit. Explained renal diet for pt. Dialysis ordered noted per EMR. 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 Problem Problem altered nutrition related lab Etiology hx of ESRD Signs/Symptoms: BUN 27, Cr 3.6 Malnutrition Alert Is there a minimum of two criteria No selected? Query Text:Check all the applicable criteria. A minimum of two criteria are recommended for diagnosis of either severe or non-severe malnutrition. Malnutrition Related to Morbid Obesity Malnutrition related to morbid obesity No Intervention/Recommendation Comments 1. Continue with current diet as ordered. If PO intake <75%, consider adding Nepro to supplement nutrition intake 2. Monitor PO intake, wt, labs and skin integrity 3. F/U as moderate risk in 3-5 days, 11/25-11/27 Expected Outcomes/Goals Expected Outcomes/Goals 1. PO intake to meet at least 75% of nutritional needs. 2. Wt stability, skin to remain intact, labs to approach WNL.
== END 2017-11-24 18:30 | DRG 682 ==
LOC: ER 21:53 → TELE 23:25
PROVIDERS: ADMIT Internal Medicine; ATTEND Internal Medicine
PROC: 5A1D70Z Performance of Urinary Filtration, Intermittent, Less than 6 Hours Per Day (ICD-10-PCS; principal; 2017-11-23)
DX: I12.0 Hypertensive chronic kidney disease with stage 5 chronic kidney disease or end stage renal disease (principal); N18.6 End stage renal disease; E43 Unspecified severe protein-calorie malnutrition; E87.1 Hypo-osmolality and hyponatremia; I69.351 Hemiplegia and hemiparesis following cerebral infarction affecting right dominant side; E86.0 Dehydration; E11.22 Type 2 diabetes mellitus with diabetic chronic kidney disease; I25.10 Atherosclerotic heart disease of native coronary artery without angina pectoris; D63.1 Anemia in chronic kidney disease; N40.0 Benign prostatic hyperplasia without lower urinary tract symptoms; I49.9 Cardiac arrhythmia, unspecified; E78.5 Hyperlipidemia, unspecified; E11.51 Type 2 diabetes mellitus with diabetic peripheral angiopathy without gangrene; Z95.0 Presence of cardiac pacemaker; Z89.421 Acquired absence of other right toe(s); Z68.25 Body mass index [BMI] 25.0-25.9, adult; Z99.2 Dependence on renal dialysis; Z82.49 Family history of ischemic heart disease and other diseases of the circulatory system; Z83.3 Family history of diabetes mellitus
CPT/HCPCS: 36415-UA; 70450-TC; 71045-TC; 80048-TC; 80053-TC; 82550-TC; 82948-90; 83605; 84484-TC; 85025-TC; 85610-TC; 85730-TC; 93005; 93880-TC; 94640; 94760; A9540; A9567; J0885; J1644; J1815; J7030; J7613; Z7610